=== PATIENT | female | born 1960 | race Caucasian/White ===

== ENCOUNTER → 2021-04-08 | Outpatient (CLI) | payer BC ==
--- NOTE | 2021-04-08 09:46 | RAD ---
EXAM: Right foot, 3 views. HISTORY: Cyst. COMPARISON: None. FINDINGS: 3 views of the right foot are obtained. There is no fracture, dislocation or subluxation. T here is a tiny soft tissue calcification along the lateral aspect of the fourth middle phalanx, possi nikki sequela of remote injury. There is accessory navicular. There is a small plantar spur. There is e nthesopathy at Achilles tendon insertion. There is mild degenerative spurring involving the tarsometa tarsal joints. IMPRESSION: 1. Mild midfoot osteoarthritis, small plantar spur and enthesopathy at the Achilles tendon insertion. 2. Tiny soft tissue calcification adjacent to the lateral aspect of the fourth middle phalanx, possib ly the sequela of remote injury. There is no osseous erosion or acute osseous finding. Electronically signed by: Jumana Archer MD (04/08/2021 9:43 AM) [id number]
== END ==
LOC: RAD 09:12
PROVIDERS: ATTEND Podiatrist
DX: M19.071 Primary osteoarthritis, right ankle and foot (principal); M77.31 Calcaneal spur, right foot; M76.61 Achilles tendinitis, right leg; M79.89 Other specified soft tissue disorders
CPT/HCPCS: 73630